=== PATIENT | female | born 1955 | race Caucasian/White ===

== ENCOUNTER 2023-02-12 19:43 | Emergency (ER) | payer OTHER ==
[2023-02-12 19:50] VITALS: RESP 20; BMI 19.0
[2023-02-12] MEDS ORDERED: ALBUTEROL SO4 2.5/IPRATROPIUM 0.5 INH SOL 3 ML VIAL.NEB. NEB ONE (20:54)
[2023-02-12] MEDS: ALBUTEROL SO4 2.5/IPRATROPIUM 0.5 INH SOL 3 ML VIAL.NEB. NEB SCH ×2 (20:59→21:19)
[2023-02-12 21:27] LABS: BASO % 0.6 % (0-2.0); EOS % 0.3 % (0-4.5); HEMOGLOBIN 11.9 GM/dL (10.7-15.3); LYMPH % 17.5 % (8-40); MCH 29.3 pg (25.7-33.7); MCHC 33.8 g/dl (32.0-36.0); MEAN CELL VOLUME 86.4 fl (80-96); MEAN PLT VOLUME 7.5 fl (7.5-11.1); MONO % 4.9 % (3.8-10.2); NEUT % 76.7 % (42.8-82.8); PLATELET COUNT 399 10^3/uL (134-434); RBC 4.05 M/mm3 (3.60-5.2); RDW 14.2 % (11.6-15.6); WHITE BLOOD COUNT 13.7 K/mm3 (4.0-10.0)
[2023-02-12 21:34] LABS: INR 1.15 (0.83-1.09); PROTHROMBIN TIME (PATIENT) 13.3 SEC (9.7-13.0)
[2023-02-12 21:37] LABS: ACTIVATED PTT 32.4 SECONDS (25.2-36.5)
[2023-02-12 21:46] LABS: CALCIUM 9.4 mg/dL (8.5-10.1)
[2023-02-12 21:47] LABS: BLOOD UREA NITROGEN 14.3 mg/dL (7-18); MAGNESIUM 2.1 mg/dL (1.8-2.4)
[2023-02-12 21:50] LABS: CREATININE 0.5 mg/dL (0.55-1.3)
[2023-02-12 21:52] LABS: BILIRUBIN,TOTAL 0.5 mg/dL (0.2-1); TOT PROT 7.1 g/dl (6.4-8.2)
[2023-02-12] MEDS ORDERED: SODIUM CHLORIDE 0.9% 500 ML INFUS.BAG IV ONE (23:43)
[2023-02-12] MEDS ORDERED: ACETAMINOPHEN 1000 MG/100 ML BAG IVPB ONE (23:43)
[2023-02-12] MEDS ORDERED: CEFTRIAXONE 1,000 MG in DEXTROSE 5%-WATER - 50 ML IVPB ONE (23:45)
[2023-02-12] MEDS ORDERED: AZITHROMYCIN IVPB 500 MG in DEXTROSE 5%-WATER - 250 ML IVPB ONE (23:45)
[2023-02-12] MEDS ORDERED: ACETAMINOPHEN INJECTION 100 ML IVPB ONE (23:55)
[2023-02-13] MEDS ORDERED: CEFTRIAXONE 1 GM/50 ML BAG ONE (00:10)
[2023-02-13] MEDS ORDERED: AZITHROMYCIN IVPB 500 MG/250 ML BAG IVPB ONE (00:34)
[2023-02-13 00:44] VITALS: BP 143/78; PULSE 111; TEMP 99
== END 2023-02-13 02:04 | disposition home or self-care (01) ==
LOC: JER 19:43
PROC: 3E0F7GC Introduction of Other Therapeutic Substance into Respiratory Tract, Via Natural or Artificial Opening (ICD-10-PCS; 2023-02-12)
PROC: 3E03329 Introduction of Other Anti-infective into Peripheral Vein, Percutaneous Approach (ICD-10-PCS; principal; 2023-02-13)
PROC: 3E033NZ Introduction of Analgesics, Hypnotics, Sedatives into Peripheral Vein, Percutaneous Approach (ICD-10-PCS; 2023-02-13)
PROC: 3E03329 Introduction of Other Anti-infective into Peripheral Vein, Percutaneous Approach (ICD-10-PCS; 2023-02-13)
DX: J18.9 Pneumonia, unspecified organism (principal); R50.9 Fever, unspecified; R53.1 Weakness; R05.9 Cough, unspecified; Z20.822 Contact with and (suspected) exposure to COVID-19
CPT/HCPCS: 0241U-QW; 36415; 71275-TC; 80053; 83735; 85025; 85610; 85730; 93005; 93010; 94640; 96365; 96368; 96375; 99285-25; Q9967

== ENCOUNTER 2023-02-18 13:27 | Inpatient (IN) | payer OTHER ==
[2023-02-18] MEDS ORDERED: SODIUM CHLORIDE 0.9% 500 ML INFUS.BAG IV ONE (14:32)
[2023-02-18] MEDS ORDERED: VANCOMYCIN 1 GM in D5W (PRE-DOCKED) 1,000 MG/250 ML (RESTRICTED TO ID ONLY IVPB ONE (14:47)
[2023-02-18] MEDS ORDERED: PIPERACILLIN/TAZOB 4.5 GM 4.5 GM in DEXTROSE 5%-WATER 100 ML IVPB ONE (14:47)
[2023-02-18 14:48] LABS: VENOUS BASE EXCESS 3.7 mmol/L (-2-2); VENOUS O2 SATURATION 61.2 % (70-80); VENOUS PH 7.41 (7.310-7.410)
[2023-02-18 14:52] LABS: BASO % 0.2 % (0-2.0); EOS % 0.1 % (0-4.5); HEMATOCRIT 36.4 % (32.4-45.2); HEMOGLOBIN 12.1 GM/dL (10.7-15.3); LYMPH % 9.1 % (8-40); MCH 28.8 pg (25.7-33.7); MCHC 33.4 g/dl (32.0-36.0); MEAN CELL VOLUME 86.1 fl (80-96); MEAN PLT VOLUME 6.5 fl (7.5-11.1); MONO % 5.6 % (3.8-10.2); PLATELET COUNT 601 10^3/uL (134-434); RBC 4.22 M/mm3 (3.60-5.2); RDW 14.4 % (11.6-15.6); WHITE BLOOD COUNT 13.5 K/mm3 (4.0-10.0)
[2023-02-18] MEDS ORDERED: VANCOMYCIN/WATER FOR INJ (PEG) 1,000 MG/200 ML BAG IVPB ONE (14:57)
[2023-02-18] MEDS ORDERED: PIPERACILLIN/TAZOB 4.5 GM 4.5 GM/100 ML BAG IVPB ONE (14:57)
[2023-02-18 15:06] LABS: POTASSIUM 4.2 mmol/L (3.5-5.1)
[2023-02-18 15:07] LABS: CALCIUM 9.2 mg/dL (8.5-10.1)
[2023-02-18 15:08] LABS: ALBUMIN 2.7 g/dl (3.4-5.0); BLOOD UREA NITROGEN 14.2 mg/dL (7-18)
[2023-02-18 15:11] LABS: CREATININE 0.5 mg/dL (0.55-1.3)
[2023-02-18 15:13] LABS: BILIRUBIN,TOTAL 0.4 mg/dL (0.2-1); TOT PROT 7.1 g/dl (6.4-8.2)
[2023-02-18 17:02] VITALS: BMI 19.0
[2023-02-18] MEDS ORDERED: PIPERACILLIN/TAZOB 3.375 GM 3.375 GM in DEXTROSE 5%-WATER - 50 ML IVPB SCH (21:00)
[2023-02-18] MEDS ORDERED: PIPERACILLIN/TAZOBACTAM 3.375 GM VIAL IVPB ONE (21:06)
[2023-02-18] MEDS: PIPERACILLIN/TAZOB 3.375 GM 3.375 GM in DEXTROSE 5%-WATER - 50 ML IVPB SCH (22:15)
[2023-02-18] MEDS: ACETAMINOPHEN 500 MG TABLET (FP) PO PRN (22:15)
[2023-02-18] MEDS: HEPARIN NA (PORCINE) 5,000 UNITS/ML 1ML VIAL SQ SCH (22:15)
[2023-02-18] MEDS: DOXYCYCLINE INJECTION 100 MG in DEXTROSE 5%-WATER 100 ML IVPB SCH (22:15)
[2023-02-19] MEDS: PIPERACILLIN/TAZOB 3.375 GM 3.375 GM in DEXTROSE 5%-WATER - 50 ML IVPB SCH ×3 (03:30→18:27)
[2023-02-19 08:54] LABS: BASO % 0.2 % (0-2.0); EOS % 0.1 % (0-4.5); HEMOGLOBIN 11.2 GM/dL (10.7-15.3); LYMPH % 12.6 % (8-40); MCH 29.3 pg (25.7-33.7); MCHC 34.1 g/dl (32.0-36.0); MEAN CELL VOLUME 85.8 fl (80-96); MONO % 7.2 % (3.8-10.2); NEUT % 79.9 % (42.8-82.8); PLATELET COUNT 527 10^3/uL (134-434); RBC 3.84 M/mm3 (3.60-5.2); RDW 14.1 % (11.6-15.6); WHITE BLOOD COUNT 11.2 K/mm3 (4.0-10.0)
[2023-02-19 09:20] LABS: POTASSIUM 4.7 mmol/L (3.5-5.1)
[2023-02-19 09:22] LABS: BLOOD UREA NITROGEN 9.2 mg/dL (7-18)
[2023-02-19 09:25] LABS: CREATININE 0.4 mg/dL (0.55-1.3)
[2023-02-19] MEDS: HEPARIN NA (PORCINE) 5,000 UNITS/ML 1ML VIAL SQ SCH ×2 (10:54→21:11)
[2023-02-19] MEDS: DOXYCYCLINE INJECTION 100 MG in DEXTROSE 5%-WATER 100 ML IVPB SCH (11:44)
[2023-02-19] MEDS: ACETAMINOPHEN 500 MG TABLET (FP) PO PRN (15:18)
[2023-02-20] MEDS: PIPERACILLIN/TAZOB 3.375 GM 3.375 GM in DEXTROSE 5%-WATER - 50 ML IVPB SCH ×3 (01:44→17:20)
[2023-02-20] MEDS: HEPARIN NA (PORCINE) 5,000 UNITS/ML 1ML VIAL SQ SCH ×2 (10:09→22:43)
[2023-02-20] MEDS ORDERED: ETHAMBUTOL HCL 100 MG TABLET PO SCH (11:00)
[2023-02-20] MEDS ORDERED: ETHAMBUTOL HCL 400 MG TABLET PO SCH (11:39)
[2023-02-20] MEDS: RIFAMPIN 300 MG CAPSULE PO SCH (12:35)
[2023-02-20] MEDS: ISONIAZID 300 MG TABLET (FP) PO SCH (12:35)
[2023-02-20] MEDS: PYRAZINAMIDE 500 MG TABLET PO SCH (12:35)
[2023-02-20] MEDS: ETHAMBUTOL HCL 400 MG TABLET PO SCH (12:35)
[2023-02-20] MEDS: PYRIDOXINE HCL (B-6) 50 MG TABLET (FP) PO SCH (12:35)
[2023-02-20 13:15] LABS: ALBUMIN 2.4 g/dl (3.4-5.0)
[2023-02-20 13:18] LABS: BILIRUBIN,DIRECT 0.1 mg/dL (0.0-0.2)
[2023-02-20 13:20] LABS: BILIRUBIN,TOTAL 0.7 mg/dL (0.2-1)
[2023-02-20] MEDS ORDERED: ALBUTEROL SO4 HFA INHALER IH PRN (16:30)
[2023-02-21] MEDS ORDERED: KETOROLAC TROMETHAMINE 30 MG/1 ML VIAL IM ONE (01:37)
[2023-02-21] MEDS ORDERED: KETOROLAC TROMETHAMINE 15 MG/ML VIAL IVPUSH ONE (01:45)
[2023-02-21] MEDS: PIPERACILLIN/TAZOB 3.375 GM 3.375 GM in DEXTROSE 5%-WATER - 50 ML IVPB SCH ×3 (01:50→17:29)
[2023-02-21 08:51] LABS: BASO % 0.2 % (0-2.0); EOS % 0.2 % (0-4.5); HEMATOCRIT 34.6 % (32.4-45.2); HEMOGLOBIN 11.9 GM/dL (10.7-15.3); LYMPH % 13.6 % (8-40); MCH 29.7 pg (25.7-33.7); MCHC 34.3 g/dl (32.0-36.0); MEAN CELL VOLUME 86.5 fl (80-96); MEAN PLT VOLUME 6.9 fl (7.5-11.1); MONO % 7.4 % (3.8-10.2); NEUT % 78.6 % (42.8-82.8); PLATELET COUNT 549 10^3/uL (134-434); RDW 13.7 % (11.6-15.6); WHITE BLOOD COUNT 10.6 K/mm3 (4.0-10.0)
[2023-02-21 09:06] LABS: POTASSIUM 4.5 mmol/L (3.5-5.1)
[2023-02-21 09:09] LABS: ALBUMIN 2.4 g/dl (3.4-5.0); BLOOD UREA NITROGEN 13.4 mg/dL (7-18); CALCIUM 9.3 mg/dL (8.5-10.1)
[2023-02-21 09:12] LABS: CREATININE 0.5 mg/dL (0.55-1.3)
[2023-02-21 09:14] LABS: TOT PROT 6.6 g/dl (6.4-8.2)
[2023-02-21] MEDS: ETHAMBUTOL HCL 400 MG TABLET PO SCH (10:26)
[2023-02-21] MEDS: ISONIAZID 300 MG TABLET (FP) PO SCH (10:26)
[2023-02-21] MEDS: RIFAMPIN 300 MG CAPSULE PO SCH (10:27)
[2023-02-21] MEDS: PYRIDOXINE HCL (B-6) 50 MG TABLET (FP) PO SCH (10:27)
[2023-02-21] MEDS: PYRAZINAMIDE 500 MG TABLET PO SCH (10:27)
[2023-02-21] MEDS: HEPARIN NA (PORCINE) 5,000 UNITS/ML 1ML VIAL SQ SCH ×2 (10:29→21:47)
[2023-02-21 18:19] LABS: HIV INTERPRETATION NEGATIVE (NEGATIVE)
[2023-02-21] MEDS: ATORVASTATIN CA 20 MG TABLET (FP) PO SCH (21:47)
[2023-02-22] MEDS: PIPERACILLIN/TAZOB 3.375 GM 3.375 GM in DEXTROSE 5%-WATER - 50 ML IVPB SCH ×3 (01:06→17:50)
[2023-02-22] MEDS ORDERED: IBUPROFEN 600 MG TABLET (FP) PO ONE (06:41)
[2023-02-22 07:11] LABS: BASO % 0.2 % (0-2.0); EOS % 0.3 % (0-4.5); HEMATOCRIT 32.6 % (32.4-45.2); HEMOGLOBIN 11.4 GM/dL (10.7-15.3); LYMPH % 13.8 % (8-40); MCH 30.1 pg (25.7-33.7); MCHC 34.9 g/dl (32.0-36.0); MEAN CELL VOLUME 86.2 fl (80-96); MONO % 7.8 % (3.8-10.2); NEUT % 77.9 % (42.8-82.8); PLATELET COUNT 553 10^3/uL (134-434); RBC 3.78 M/mm3 (3.60-5.2); RDW 13.9 % (11.6-15.6); WHITE BLOOD COUNT 11.1 K/mm3 (4.0-10.0)
[2023-02-22 07:30] LABS: POTASSIUM 4.4 mmol/L (3.5-5.1)
[2023-02-22 07:33] LABS: ALBUMIN 2.4 g/dl (3.4-5.0); CALCIUM 9.2 mg/dL (8.5-10.1)
[2023-02-22 07:34] LABS: BLOOD UREA NITROGEN 11.4 mg/dL (7-18); MAGNESIUM 2.1 mg/dL (1.8-2.4)
[2023-02-22 07:36] LABS: CREATININE 0.4 mg/dL (0.55-1.3)
[2023-02-22 07:38] LABS: BILIRUBIN,TOTAL 0.6 mg/dL (0.2-1); TOT PROT 6.7 g/dl (6.4-8.2)
[2023-02-22] MEDS: RIFAMPIN 300 MG CAPSULE PO SCH (10:57)
[2023-02-22] MEDS: HEPARIN NA (PORCINE) 5,000 UNITS/ML 1ML VIAL SQ SCH ×2 (10:57→22:11)
[2023-02-22] MEDS: ISONIAZID 300 MG TABLET (FP) PO SCH (10:57)
[2023-02-22] MEDS: ETHAMBUTOL HCL 400 MG TABLET PO SCH (10:58)
[2023-02-22] MEDS: PYRAZINAMIDE 500 MG TABLET PO SCH (10:58)
[2023-02-22] MEDS: PYRIDOXINE HCL (B-6) 50 MG TABLET (FP) PO SCH (11:27)
[2023-02-22] MEDS: ATORVASTATIN CA 20 MG TABLET (FP) PO SCH (22:11)
[2023-02-23] MEDS: PIPERACILLIN/TAZOB 3.375 GM 3.375 GM in DEXTROSE 5%-WATER - 50 ML IVPB SCH ×3 (01:33→17:57)
[2023-02-23 08:34] LABS: BASO % 0.4 % (0-2.0); EOS % 1.4 % (0-4.5); HEMATOCRIT 32.9 % (32.4-45.2); HEMOGLOBIN 11.5 GM/dL (10.7-15.3); LYMPH % 14.5 % (8-40); MCH 29.8 pg (25.7-33.7); MEAN CELL VOLUME 85.2 fl (80-96); MONO % 7.6 % (3.8-10.2); NEUT % 76.1 % (42.8-82.8); PLATELET COUNT 589 10^3/uL (134-434); RBC 3.86 M/mm3 (3.60-5.2); RDW 13.8 % (11.6-15.6); WHITE BLOOD COUNT 10.3 K/mm3 (4.0-10.0)
[2023-02-23 09:12] LABS: POTASSIUM 4.4 mmol/L (3.5-5.1)
[2023-02-23 09:27] LABS: CALCIUM 9.3 mg/dL (8.5-10.1)
[2023-02-23 09:28] LABS: ALBUMIN 2.3 g/dl (3.4-5.0); BLOOD UREA NITROGEN 10.1 mg/dL (7-18); MAGNESIUM 2.2 mg/dL (1.8-2.4)
[2023-02-23 09:31] LABS: CREATININE 0.4 mg/dL (0.55-1.3)
[2023-02-23 09:32] LABS: BILIRUBIN,TOTAL 0.5 mg/dL (0.2-1)
[2023-02-23 09:33] LABS: TOT PROT 6.7 g/dl (6.4-8.2)
[2023-02-23] MEDS: ISONIAZID 300 MG TABLET (FP) PO SCH (09:38)
[2023-02-23] MEDS: PYRAZINAMIDE 500 MG TABLET PO SCH (09:39)
[2023-02-23] MEDS: ETHAMBUTOL HCL 400 MG TABLET PO SCH (09:39)
[2023-02-23] MEDS: PYRIDOXINE HCL (B-6) 50 MG TABLET (FP) PO SCH (09:40)
[2023-02-23] MEDS: RIFAMPIN 300 MG CAPSULE PO SCH (09:40)
[2023-02-23] MEDS: HEPARIN NA (PORCINE) 5,000 UNITS/ML 1ML VIAL SQ SCH ×2 (09:42→22:44)
[2023-02-23] MEDS ORDERED: PIPERACILLIN/TAZOBACTAM 3.375 GM VIAL IVPB ONE (17:20)
[2023-02-23] MEDS: ATORVASTATIN CA 20 MG TABLET (FP) PO SCH (22:45)
[2023-02-24] MEDS: PIPERACILLIN/TAZOB 3.375 GM 3.375 GM in DEXTROSE 5%-WATER - 50 ML IVPB SCH ×3 (01:51→18:07)
[2023-02-24 09:15] LABS: BASO % 0.3 % (0-2.0); EOS % 2.1 % (0-4.5); HEMATOCRIT 35.6 % (32.4-45.2); HEMOGLOBIN 12.2 GM/dL (10.7-15.3); LYMPH % 15.7 % (8-40); MCH 29.5 pg (25.7-33.7); MCHC 34.3 g/dl (32.0-36.0); MEAN CELL VOLUME 86.1 fl (80-96); MEAN PLT VOLUME 6.6 fl (7.5-11.1); MONO % 6.3 % (3.8-10.2); NEUT % 75.6 % (42.8-82.8); PLATELET COUNT 687 10^3/uL (134-434); RBC 4.13 M/mm3 (3.60-5.2); RDW 14.2 % (11.6-15.6); WHITE BLOOD COUNT 10.8 K/mm3 (4.0-10.0)
[2023-02-24] MEDS: HEPARIN NA (PORCINE) 5,000 UNITS/ML 1ML VIAL SQ SCH ×2 (09:53→21:37)
[2023-02-24] MEDS: PYRAZINAMIDE 500 MG TABLET PO SCH (09:55)
[2023-02-24] MEDS: ETHAMBUTOL HCL 400 MG TABLET PO SCH (09:56)
[2023-02-24] MEDS: RIFAMPIN 300 MG CAPSULE PO SCH (09:56)
[2023-02-24] MEDS: ISONIAZID 300 MG TABLET (FP) PO SCH (09:56)
[2023-02-24] MEDS: PYRIDOXINE HCL (B-6) 50 MG TABLET (FP) PO SCH (09:56)
[2023-02-24 10:08] LABS: MAGNESIUM 2.1 mg/dL (1.8-2.4)
[2023-02-24 10:10] LABS: CALCIUM 9.6 mg/dL (8.5-10.1)
[2023-02-24 10:11] LABS: ALBUMIN 2.6 g/dl (3.4-5.0); BLOOD UREA NITROGEN 12.2 mg/dL (7-18); CREATININE 0.5 mg/dL (0.55-1.3)
[2023-02-24 10:12] LABS: TOT PROT 7.4 g/dl (6.4-8.2)
[2023-02-24 10:14] LABS: BILIRUBIN,TOTAL 0.3 mg/dL (0.2-1)
[2023-02-24] MEDS: ATORVASTATIN CA 20 MG TABLET (FP) PO SCH (21:37)
[2023-02-25] MEDS: PIPERACILLIN/TAZOB 3.375 GM 3.375 GM in DEXTROSE 5%-WATER - 50 ML IVPB SCH ×3 (03:08→18:18)
[2023-02-25] MEDS: ETHAMBUTOL HCL 400 MG TABLET PO SCH (09:37)
[2023-02-25] MEDS: RIFAMPIN 300 MG CAPSULE PO SCH (09:37)
[2023-02-25] MEDS: ISONIAZID 300 MG TABLET (FP) PO SCH (09:37)
[2023-02-25] MEDS: PYRAZINAMIDE 500 MG TABLET PO SCH (09:38)
[2023-02-25] MEDS: HEPARIN NA (PORCINE) 5,000 UNITS/ML 1ML VIAL SQ SCH ×2 (09:38→21:42)
[2023-02-25] MEDS: PYRIDOXINE HCL (B-6) 50 MG TABLET (FP) PO SCH (09:38)
[2023-02-25] MEDS: ATORVASTATIN CA 20 MG TABLET (FP) PO SCH (21:42)
[2023-02-26] MEDS: PIPERACILLIN/TAZOB 3.375 GM 3.375 GM in DEXTROSE 5%-WATER - 50 ML IVPB SCH ×2 (01:01→10:10)
[2023-02-26] MEDS: ETHAMBUTOL HCL 400 MG TABLET PO SCH (10:08)
[2023-02-26] MEDS: ISONIAZID 300 MG TABLET (FP) PO SCH (10:08)
[2023-02-26] MEDS: PYRAZINAMIDE 500 MG TABLET PO SCH (10:09)
[2023-02-26] MEDS: RIFAMPIN 300 MG CAPSULE PO SCH (10:09)
[2023-02-26] MEDS: PYRIDOXINE HCL (B-6) 50 MG TABLET (FP) PO SCH (10:09)
[2023-02-26] MEDS: HEPARIN NA (PORCINE) 5,000 UNITS/ML 1ML VIAL SQ SCH ×2 (10:12→21:53)
[2023-02-26] MEDS ORDERED: ACETAMINOPHEN 325 MG TABLET (FP) PO PRN (17:13)
[2023-02-26] MEDS: ATORVASTATIN CA 20 MG TABLET (FP) PO SCH (21:53)
[2023-02-27] MEDS: HEPARIN NA (PORCINE) 5,000 UNITS/ML 1ML VIAL SQ SCH ×2 (10:03→21:59)
[2023-02-27] MEDS: PYRAZINAMIDE 500 MG TABLET PO SCH (10:03)
[2023-02-27] MEDS: ISONIAZID 300 MG TABLET (FP) PO SCH (10:03)
[2023-02-27] MEDS: PYRIDOXINE HCL (B-6) 50 MG TABLET (FP) PO SCH (10:03)
[2023-02-27] MEDS: RIFAMPIN 300 MG CAPSULE PO SCH (10:03)
[2023-02-27] MEDS: ETHAMBUTOL HCL 400 MG TABLET PO SCH (10:04)
[2023-02-27] MEDS: ATORVASTATIN CA 20 MG TABLET (FP) PO SCH (21:59)
[2023-02-28] MEDS: PYRAZINAMIDE 500 MG TABLET PO SCH (09:58)
[2023-02-28] MEDS: PYRIDOXINE HCL (B-6) 50 MG TABLET (FP) PO SCH (09:58)
[2023-02-28] MEDS: HEPARIN NA (PORCINE) 5,000 UNITS/ML 1ML VIAL SQ SCH ×2 (09:58→21:49)
[2023-02-28] MEDS: ISONIAZID 300 MG TABLET (FP) PO SCH (09:58)
[2023-02-28] MEDS: ETHAMBUTOL HCL 400 MG TABLET PO SCH (09:58)
[2023-02-28] MEDS: RIFAMPIN 300 MG CAPSULE PO SCH (09:58)
[2023-02-28 10:08] LABS: BASO % 0.3 % (0-2.0); EOS % 2.5 % (0-4.5); HEMATOCRIT 38.3 % (32.4-45.2); HEMOGLOBIN 12.5 GM/dL (10.7-15.3); LYMPH % 26.6 % (8-40); MCH 28.9 pg (25.7-33.7); MCHC 32.5 g/dl (32.0-36.0); MEAN CELL VOLUME 88.9 fl (80-96); MEAN PLT VOLUME 7.1 fl (7.5-11.1); MONO % 7.8 % (3.8-10.2); NEUT % 62.8 % (42.8-82.8); PLATELET COUNT 667 10^3/uL (134-434); RBC 4.31 M/mm3 (3.60-5.2); RDW 13.9 % (11.6-15.6); WHITE BLOOD COUNT 7.4 K/mm3 (4.0-10.0)
[2023-02-28 10:28] LABS: POTASSIUM 4.8 mmol/L (3.5-5.1)
[2023-02-28 10:37] LABS: CALCIUM 9.3 mg/dL (8.5-10.1)
[2023-02-28 10:38] LABS: ALBUMIN 2.8 g/dl (3.4-5.0); BLOOD UREA NITROGEN 11.2 mg/dL (7-18)
[2023-02-28 10:41] LABS: BILIRUBIN,DIRECT 0.1 mg/dL (0.0-0.2); CREATININE 0.4 mg/dL (0.55-1.3)
[2023-02-28 10:42] LABS: TOT PROT 7.1 g/dl (6.4-8.2)
[2023-02-28 10:43] LABS: BILIRUBIN,TOTAL 0.3 mg/dL (0.2-1)
[2023-02-28] MEDS: ATORVASTATIN CA 20 MG TABLET (FP) PO SCH (21:49)
[2023-03-01] MEDS: RIFAMPIN 300 MG CAPSULE PO SCH (10:27)
[2023-03-01] MEDS: PYRAZINAMIDE 500 MG TABLET PO SCH (10:27)
[2023-03-01] MEDS: HEPARIN NA (PORCINE) 5,000 UNITS/ML 1ML VIAL SQ SCH ×2 (10:28→21:50)
[2023-03-01] MEDS: ETHAMBUTOL HCL 400 MG TABLET PO SCH (10:28)
[2023-03-01] MEDS: PYRIDOXINE HCL (B-6) 50 MG TABLET (FP) PO SCH (10:28)
[2023-03-01] MEDS: ISONIAZID 300 MG TABLET (FP) PO SCH (10:28)
[2023-03-01] MEDS: ATORVASTATIN CA 20 MG TABLET (FP) PO SCH (21:52)
[2023-03-02] MEDS: HEPARIN NA (PORCINE) 5,000 UNITS/ML 1ML VIAL SQ SCH ×2 (10:49→22:17)
[2023-03-02] MEDS: PYRAZINAMIDE 500 MG TABLET PO SCH (10:50)
[2023-03-02] MEDS: ISONIAZID 300 MG TABLET (FP) PO SCH (10:50)
[2023-03-02] MEDS: PYRIDOXINE HCL (B-6) 50 MG TABLET (FP) PO SCH (10:50)
[2023-03-02] MEDS: ETHAMBUTOL HCL 400 MG TABLET PO SCH (10:50)
[2023-03-02] MEDS: RIFAMPIN 300 MG CAPSULE PO SCH (10:50)
[2023-03-02] MEDS: ATORVASTATIN CA 20 MG TABLET (FP) PO SCH (22:17)
[2023-03-03 09:08] LABS: ALBUMIN 3.1 g/dl (3.4-5.0)
[2023-03-03 09:12] LABS: BILIRUBIN,DIRECT 0.1 mg/dL (0.0-0.2)
[2023-03-03 09:13] LABS: BILIRUBIN,TOTAL 0.3 mg/dL (0.2-1); TOT PROT 7.4 g/dl (6.4-8.2)
[2023-03-03] MEDS: HEPARIN NA (PORCINE) 5,000 UNITS/ML 1ML VIAL SQ SCH ×2 (12:02→22:21)
[2023-03-03] MEDS: ETHAMBUTOL HCL 400 MG TABLET PO SCH (12:03)
[2023-03-03] MEDS: RIFAMPIN 300 MG CAPSULE PO SCH (12:03)
[2023-03-03] MEDS: PYRIDOXINE HCL (B-6) 50 MG TABLET (FP) PO SCH (12:03)
[2023-03-03] MEDS: PYRAZINAMIDE 500 MG TABLET PO SCH (12:03)
[2023-03-03] MEDS: ISONIAZID 300 MG TABLET (FP) PO SCH (12:03)
[2023-03-03] MEDS: ATORVASTATIN CA 20 MG TABLET (FP) PO SCH (22:21)
[2023-03-04 07:54] LABS: BASO % 0.4 % (0-2.0); EOS % 3.6 % (0-4.5); HEMATOCRIT 38.9 % (32.4-45.2); HEMOGLOBIN 12.7 GM/dL (10.7-15.3); LYMPH % 32.3 % (8-40); MCH 28.9 pg (25.7-33.7); MCHC 32.7 g/dl (32.0-36.0); MEAN CELL VOLUME 88.4 fl (80-96); MEAN PLT VOLUME 7.2 fl (7.5-11.1); MONO % 6.4 % (3.8-10.2); NEUT % 57.3 % (42.8-82.8); PLATELET COUNT 575 10^3/uL (134-434); RDW 13.9 % (11.6-15.6); WHITE BLOOD COUNT 7.3 K/mm3 (4.0-10.0)
[2023-03-04 08:10] LABS: POTASSIUM 4.7 mmol/L (3.5-5.1)
[2023-03-04 08:24] LABS: BLOOD UREA NITROGEN 11.2 mg/dL (7-18); CALCIUM 9.8 mg/dL (8.5-10.1)
[2023-03-04 08:26] LABS: ALBUMIN 2.8 g/dl (3.4-5.0)
[2023-03-04 08:27] LABS: CREATININE 0.5 mg/dL (0.55-1.3)
[2023-03-04 08:28] LABS: TOT PROT 6.9 g/dl (6.4-8.2)
[2023-03-04 08:31] LABS: BILIRUBIN,TOTAL 0.5 mg/dL (0.2-1)
[2023-03-04] MEDS: ETHAMBUTOL HCL 400 MG TABLET PO SCH (09:54)
[2023-03-04] MEDS: ISONIAZID 300 MG TABLET (FP) PO SCH (09:54)
[2023-03-04] MEDS: HEPARIN NA (PORCINE) 5,000 UNITS/ML 1ML VIAL SQ SCH ×2 (09:54→22:34)
[2023-03-04] MEDS: RIFAMPIN 300 MG CAPSULE PO SCH (09:55)
[2023-03-04] MEDS: PYRIDOXINE HCL (B-6) 50 MG TABLET (FP) PO SCH (09:55)
[2023-03-04] MEDS: PYRAZINAMIDE 500 MG TABLET PO SCH (09:55)
[2023-03-04] MEDS: ATORVASTATIN CA 20 MG TABLET (FP) PO SCH (22:36)
[2023-03-05 09:50] LABS: BASO % 0.4 % (0-2.0); EOS % 3.5 % (0-4.5); HEMATOCRIT 38.9 % (32.4-45.2); HEMOGLOBIN 13.2 GM/dL (10.7-15.3); LYMPH % 27.2 % (8-40); MCH 29.6 pg (25.7-33.7); MEAN CELL VOLUME 87.1 fl (80-96); MEAN PLT VOLUME 6.8 fl (7.5-11.1); MONO % 6.6 % (3.8-10.2); NEUT % 62.3 % (42.8-82.8); PLATELET COUNT 526 10^3/uL (134-434); POTASSIUM 4.7 mmol/L (3.5-5.1); RBC 4.47 M/mm3 (3.60-5.2); RDW 14.4 % (11.6-15.6); WHITE BLOOD COUNT 5.8 K/mm3 (4.0-10.0)
[2023-03-05 10:02] LABS: BLOOD UREA NITROGEN 11.5 mg/dL (7-18); CALCIUM 9.6 mg/dL (8.5-10.1)
[2023-03-05 10:05] LABS: CREATININE 0.4 mg/dL (0.55-1.3)
[2023-03-05 10:07] LABS: BILIRUBIN,TOTAL 0.4 mg/dL (0.2-1); TOT PROT 7.1 g/dl (6.4-8.2)
[2023-03-05] MEDS: RIFAMPIN 300 MG CAPSULE PO SCH (10:12)
[2023-03-05] MEDS: HEPARIN NA (PORCINE) 5,000 UNITS/ML 1ML VIAL SQ SCH (10:12)
[2023-03-05] MEDS: PYRIDOXINE HCL (B-6) 50 MG TABLET (FP) PO SCH (10:13)
[2023-03-05] MEDS: PYRAZINAMIDE 500 MG TABLET PO SCH (10:13)
[2023-03-05] MEDS: ISONIAZID 300 MG TABLET (FP) PO SCH (10:13)
[2023-03-05] MEDS: ETHAMBUTOL HCL 400 MG TABLET PO SCH (10:13)
[2023-03-05 15:24] VITALS: BP 116/75; PULSE 93; RESP 20; TEMP 98.2
== END 2023-03-05 21:09 | disposition home health service (06) | DRG 177 ==
LOC: JER 13:27 → JERBED 15:31 → J5S 18:52 → J8W 02-20 09:50
PROVIDERS: ADMIT Internal Medicine; ATTEND Nurse Practitioner Acute Care
DX: A15.0 Tuberculosis of lung (principal); E43 Unspecified severe protein-calorie malnutrition; J96.01 Acute respiratory failure with hypoxia; Z68.1 Body mass index [BMI] 19.9 or less, adult; A15.9 Respiratory tuberculosis unspecified; J18.9 Pneumonia, unspecified organism; J15.9 Unspecified bacterial pneumonia; I10 Essential (primary) hypertension; R63.4 Abnormal weight loss; E78.5 Hyperlipidemia, unspecified; R63.0 Anorexia
CPT/HCPCS: 0241U-QW; 36415; 71046-TC-FY; 80048; 80053; 80076; 82803; 83605; 83735; 85025; 86480; 86850; 86900; 86901; 87040; 87070; 87081; 87116; 87205; 87206; 87389; 87556; 87899; 93005; 93010; 99285-25; J1644